=== PATIENT | male | born 1955 | race Caucasian/White ===

== ENCOUNTER → 2016-07-09 | Outpatient (CLI) | payer BC ==
[~2016-07-09] MED LIST: ADVAIR 250-501 EACH INH; ALBUTEROL2.5 MG/0.5 INH; ASPIRIN LO-DOSE81 MG PO; CPAP INH; CRESTOR10 MG PO; FLOMAX0.4 MG PO; GLUCOPHAGE500 MG PO; LOTRIMIN30 GM TOP; MELATIN3 MG PO; PAXIL10 MG PO; PROVENTIL OR V6.7 GM INH; ZEBETA5 MG PO; ZESTRIL40 MG PO; [UNRECOGNIZED DRUG - REMARK] PO
== END | disposition disaster alternative care site (69) ==
LOC: GRAD 06-25 08:00
DX: Q25.1 Coarctation of aorta (principal); K57.90 Diverticulosis of intestine, part unspecified, without perforation or abscess without bleeding; I25.10 Atherosclerotic heart disease of native coronary artery without angina pectoris